=== PATIENT | male | born 1955 | race Caucasian/White ===

== ENCOUNTER 2020-02-17 15:42 | Outpatient (REF) | payer BC, SELFPAY ==
[2020-02-17 20:44] LABS: Anion Gap 5.6 mmol/L (3-11); BUN 32 mg/dL (7-18); CO2 30.4 mmol/L (21.0-32.0); CREATININE 1.28 mg/dL (0.70-1.30); Calcium 8.6 mg/dL (8.5-10.1); Chloride 103 mmol/L (98-107); Estimated GFR 56.76 (mL/min/1.73m2); Glucose 88 mg/dL (74-106); Potassium 4.4 mmol/L (3.5-5.1); Sodium 139 mmol/L (136-145)
[2020-02-19 11:55] LABS: PSA, Diagnostic 5.8 ng/mL (0.0-4.5)
== END 2020-02-17 16:02 ==
LOC: NCHCN 15:42
PROVIDERS: PCP Physician Assistant; Visit Provider Internal Medicine
DX: R97.20 Elevated prostate specific antigen [PSA] (principal); I10 Essential (primary) hypertension
CPT/HCPCS: 80048; 84153

== ENCOUNTER 2022-08-08 20:08 | Outpatient (REF) | payer MEDICARE, BC, SELFPAY ==
[2022-08-08 21:42] LABS: Abs Immature Grans 0.07 10^3/uL (0.0-0.06); Absolute Basophil Count 0.06 10^3/uL (0.0-0.2); Absolute Neutrophil Count 6.96 10^3/uL (1.2-6.7); Basophils % 0.3; Eosinophils % 1.1; HCT 44.1 % (40.0-50.0); Immature Grans % 0.3; MCH 29.7 pg (27.0-33.0); MCV 87 fL (80-95); Neutrophils % 32.2; Platelet Count 391 10^3/uL (130-400); RBC 5.05 10^6/uL (4.36-5.78); RDW 13.2 % (11.8-14.1)
[2022-08-08 21:44] LABS: Absolute Eosinophil Count 0.24 10^3/uL (0.0-0.7); Absolute Lymphocyte Count 13.63 10^3/uL (1.2-3.4); Absolute Monocyte Count 0.65 10^3/uL (0.1-0.8)
[2022-08-09 06:08] LABS: Diff Comment Agrees w/ Instrument; RBC Morphology Normal
[2022-08-09 06:09] LABS: Lymphocytes % 63.1
== END 2022-08-08 20:09 | disposition home or self-care (01) ==
LOC: NCHCN 20:08
PROVIDERS: PCP Physician Assistant; Visit Provider Internal Medicine
DX: N39.0 Urinary tract infection, site not specified (principal)
CPT/HCPCS: 85025

== ENCOUNTER 2023-03-01 14:35 | Outpatient (REF) | payer MEDICARE, BC, SELFPAY ==
[2023-03-01 18:54] LABS: Abs Immature Grans 0.03 10^3/uL (0.0-0.06); Absolute Eosinophil Count 0.34 10^3/uL (0.0-0.7); Absolute Monocyte Count 0.55 10^3/uL (0.1-0.8); Basophils % 0.5; Eosinophils % 2.3; HCT 44.2 % (40.0-50.0); HGB 14.9 g/dL (13.5-17.5); Immature Grans % 0.2; MCH 29.6 pg (27.0-33.0); MCHC 33.7 % (32.0-36.0); MCV 88 fL (80-95); MPV 9.1 fL (8.0-11.0); Monocytes % 3.7; Neutrophils % 25.4; Platelet Count 340 10^3/uL (130-400); RBC 5.03 10^6/uL (4.36-5.78); RDW 13.2 % (11.8-14.1); RDW-SD 42.6 fL; WBC 14.91 10^3/uL (4.4-10.8)
[2023-03-01 19:01] LABS: Absolute Basophil Count 0.07 10^3/uL (0.0-0.2); Absolute Lymphocyte Count 10.12 10^3/uL (1.2-3.4); Absolute Neutrophil Count 3.79 10^3/uL (1.2-6.7)
[2023-03-01 19:10] LABS: Anion Gap 8.2 mmol/L (3-11); BUN 26 mg/dL (7-18); CO2 28.8 mmol/L (21.0-32.0); CREATININE 1.2 mg/dL (0.70-1.30); Calcium 8.8 mg/dL (8.5-10.1); Calculated LDL 82 mg/dL (<100); Chloride 103 mmol/L (98-107); Cholesterol 202 mg/dL (<200); Glucose 105 mg/dL (74-106); HDL Cholesterol 41 mg/dL (40-60); Potassium 4.7 mmol/L (3.5-5.1); Sodium 140 mmol/L (136-145); Triglyceride 395 mg/dL (<150)
[2023-03-01 19:27] LABS: Diff Comment Agrees w/ Instrument; Lymphocytes % 67.9; RBC Morphology Normal
[2023-03-04 09:43] LABS: PSA, Screening <0.1 ng/mL (<=4.5)
== END 2023-03-01 14:36 | disposition home or self-care (01) ==
LOC: NCHCN 14:35
PROVIDERS: PCP Physician Assistant; Visit Provider Internal Medicine
DX: I10 Essential (primary) hypertension (principal); D72.820 Lymphocytosis (symptomatic); Z12.5 Encounter for screening for malignant neoplasm of prostate
CPT/HCPCS: 80048; 80061; 84153; 85025

== ENCOUNTER 2024-01-23 12:18 | Outpatient (CLI) | payer MEDICARE, BC, SELFPAY ==
[2024-01-23 11:34] LABS: Abs Immature Grans 0.04 10^3/uL (0.0-0.06); Absolute Basophil Count 0.08 10^3/uL (0.0-0.2); Basophils % 0.4; Eosinophils % 1.6; HCT 48.8 % (40.0-50.0); HGB 16.4 g/dL (13.5-17.5); Immature Grans % 0.2; MCH 29.9 pg (27.0-33.0); MCHC 33.6 % (32.0-36.0); MCV 89 fL (80-95); MPV 8.8 fL (8.0-11.0); Neutrophils % 24.9; Platelet Count 365 10^3/uL (130-400); RBC 5.49 10^6/uL (4.36-5.78); RDW 13.3 % (11.8-14.1); RDW-SD 43.7 fL; WBC 20.97 10^3/uL (4.4-10.8)
[2024-01-23 11:43] LABS: ALT 34 U/L (16-63); AST 17 U/L (15-37); Alkaline Phosphatase 83 U/L (46-116); Anion Gap 7.7 mmol/L (3-11); BUN 25 mg/dL (7-18); Bilirubin, Total 0.4 mg/dL (0.2-1.0); CO2 29.3 mmol/L (21.0-32.0); CREATININE 1.4 mg/dL (0.70-1.30); Calcium 8.9 mg/dL (8.5-10.1); Chloride 103 mmol/L (98-107); Estimated GFR 55.09 (mL/min/1.73m2); Glucose 102 mg/dL (74-106); Sodium 140 mmol/L (136-145); Total Protein 7.4 g/dL (6.4-8.2)
[2024-01-23 11:44] LABS: Absolute Eosinophil Count 0.34 10^3/uL (0.0-0.7); Absolute Lymphocyte Count 14.66 10^3/uL (1.2-3.4); Absolute Monocyte Count 0.63 10^3/uL (0.1-0.8); Absolute Neutrophil Count 5.22 10^3/uL (1.2-6.7)
[2024-01-23 11:55] LABS: Diff Comment Agrees w/ Instrument; Lymphocytes % 69.9; RBC Morphology Normal
== END 2024-01-23 12:19 | disposition home or self-care (01) ==
LOC: LBO 12:19
PROVIDERS: PCP Physician Assistant; Visit Provider Internal Medicine Hematology & Oncology
DX: C91.10 Chronic lymphocytic leukemia of B-cell type not having achieved remission (principal)
CPT/HCPCS: 36415; 80053; 85025

== ENCOUNTER 2024-03-04 21:10 | Outpatient (REF) | payer MEDICARE, BC, SELFPAY ==
[2024-03-04 22:20] LABS: Anion Gap 8.4 mmol/L (3-11); BUN 23 mg/dL (7-18); CO2 27.6 mmol/L (21.0-32.0); CREATININE 1.3 mg/dL (0.70-1.30); Calcium 8.8 mg/dL (8.5-10.1); Calculated LDL 97 mg/dL (<100); Chloride 101 mmol/L (98-107); Cholesterol 187 mg/dL (<200); Estimated GFR 60.21 (mL/min/1.73m2); Glucose 107 mg/dL (74-106); HDL Cholesterol 43 mg/dL (40-60); Potassium 4.8 mmol/L (3.5-5.1); Sodium 137 mmol/L (136-145); Triglyceride 235 mg/dL (<150)
[2024-03-05 18:52] LABS: PSA, Screening <0.1 ng/mL (<=4.5)
== END 2024-03-04 21:11 | disposition home or self-care (01) ==
LOC: NCHCN 21:10
PROVIDERS: PCP Physician Assistant; Visit Provider Internal Medicine
DX: C61 Malignant neoplasm of prostate (principal); Z00.00 Encounter for general adult medical examination without abnormal findings; M19.012 Primary osteoarthritis, left shoulder; Z12.5 Encounter for screening for malignant neoplasm of prostate
CPT/HCPCS: 80048; 80061; 84153

== ENCOUNTER 2025-03-08 12:24 | Outpatient (REF) | payer MEDICARE, BC, SELFPAY ==
[2025-03-08 20:30] LABS: ALT 30 U/L (16-63); Anion Gap 7.2 mmol/L (3-11); BUN 33 mg/dL (7-18); CO2 28.8 mmol/L (21.0-32.0); CREATININE 1.3 mg/dL (0.70-1.30); Calcium 9.4 mg/dL (8.5-10.1); Calculated LDL 94 mg/dL (<100); Chloride 101 mmol/L (98-107); Cholesterol 186 mg/dL (<200); Estimated GFR 59.84 (mL/min/1.73m2); Glucose 92 mg/dL (74-106); HDL Cholesterol 41 mg/dL (>or=40); Potassium 4.9 mmol/L (3.5-5.1); Sodium 137 mmol/L (136-145); TSH 2.22 uIU/mL (0.36-3.74); Triglyceride 258 mg/dL (<150); Vitamin B12 534 pg/mL (193-986)
[2025-03-08 20:32] LABS: Hemoglobin A1C 5.6 % (<5.7)
[2025-03-08 20:46] LABS: Creatine Kinase 198 U/L (39-308)
[2025-03-10 10:31] LABS: PSA, Diagnostic <0.1 ng/mL (<=4.5)
[2025-03-10 14:01] LABS: Albumin 63.1 % (55.8-66.1); Albumin g/dL 4.7 g/dL (3.6-5.2); Total Protein 7.5 g/dL (6.3-8.2)
== END 2025-03-08 12:25 | disposition home or self-care (01) ==
LOC: NCHCN 12:24
PROVIDERS: PCP Physician Assistant; Visit Provider Internal Medicine
DX: E78.5 Hyperlipidemia, unspecified (principal); G60.9 Hereditary and idiopathic neuropathy, unspecified; C61 Malignant neoplasm of prostate
CPT/HCPCS: 80048; 80061; 82550; 82607; 83036; 84153; 84165; 84443; 84460